=== PATIENT | female | born 1980 | race Caucasian/White ===

== ENCOUNTER 2016-05-10 17:38 | Inpatient (IN) | payer MEDICAID, OTHER ==
[~2016-05-10] VITALS: Ht 165.1 cm; Wt 80.5 kg
[2016-05-10 18:04] VITALS: BP 127/83; PULSE 88; RESP 20; Ht 165.1 cm; Wt 80.5 kg
[2016-05-10] MEDS ORDERED: PRENAT PO (18:07)
--- NOTE | 2016-05-10 19:29 | RADRPT ---
PROCEDURE: US OB. CLINICAL INDICATION: labor TECHNIQUE: Transabdominal OB views of the pelvis are available for review. COMPARISON: None FINDINGS: Within the uterus, there is a single, live intrauterine . The presentation is cephalic. Th e heart rate is 161 beats per minute. The amniotic fluid index in four quadrants is 10.6 cm. The placenta is noted to be anterior and grade 2. The biophysical profile score is 8/8. IMPRESSION: 1. Single live intrauterine with an amniotic fluid index of 10.6 cm. The biophysical pro file score is 8/8. 2. The placenta is anterior and grade 2. There are no findings of abruption or previa. RPTAT: QQ .Crow Velasco MD, Date Time Electronically viewed and signed by .Crow Velasco MD, on 05/10/2016 19:29 .M/
--- NOTE | 2016-05-10 19:31 | RADRPT ---
PROCEDURE: US OB. CLINICAL INDICATION: term gestation pain TECHNIQUE: Multiple sonographic images of the pelvis were obtained. The images were reviewed on a PACS workstation. COMPARISON: No prior studies are available for comparison. FINDINGS: There is a single viable intrauterine gestation. Cardiac activity is present with 168 beats per min [place]. There is a cephalic presentation. Measurements were made in order to determine age. The results are as follows: BPD =9.4 cm HC =33.3 cm AC =34. 1 cm FL =7.4 cm. Estimated gestational age of approximately 38 weeks 1 day The estimated date of delivery is 05/23/2016. The EFW = 3375 g plus/minus 506 g . The placenta is anterior. There is no evidence for an abruption or placenta previa. There are no adnexal masses.. IMPRESSION: Single viable intrauterine gestation of approximately 38 weeks 1 day. The estimated date of deliver y is 05/23/2016 . .Crow Velasco MD, MD Date Time Electronically viewed and signed by .Crow Velasco MD, on 05/10/2016 19:31 .M/
[2016-05-10] MEDS ORDERED: LACTATED RINGER'S 1,000 ML IV SCH (21:01)
--- NOTE | 2016-05-10 21:29 | HP ---
Date/Time of Note Date/Time of Note DATE: 05/10/16 TIME: 21:26 OB - History Hx of Present Free Text/Dictation 35-year-old with IUP at 39 weeks and 5 days with care at [facility] presents with a complaint of contractions. She was noted to be in labor. She had a cervical change from 1-3 cm in about 2 hours while being observed in triage. records are not available. GBS results obtained which is negative. She denies any compensation during her course. : 3 Para: 2 Care: Other ( records are not available) Obstetrical Complications: None Other Concerns: Denies any complications during her course Denies any remarkable past OB history Past Family/Social History * Past Medical, Surgical, Family and Obstetric Histories reviewed from chart. OB Admission Exam Vital Signs Vital Signs Vital Signs Date Time Temp Pulse Resp B/P Pulse Ox O2 Delivery O2 Flow Rate FiO2 05/10/16 18:04 97.5 88 20 127/83 98 Room Air Physical Exam HEENT: WNL Heart: Rhythm Normal Lungs: Clear Abdomen: WNL Extremities: Normal Reflexes: Normal Cervical Dilatation: 3cm Effacement: 75% Station: -2 Membranes: Intact Heart Rate: 120's Accelerations: Accelerations Present Decelerations: No Decelerations Varibility: Moderate Contractions on Admission: >10 Minutes Apart Intensity: Mild OB Assessment/Plan Other Assessment: Early active labor GBS negative Plan: Expectant Management Other plan: Declined epidural and labor augmentation Desired to have the least intervention Anticipate labs DAE SAUCEDO MD May 10, 2016 21:29
[2016-05-10] MEDS ORDERED: MISOPROSTOL 200 MCG TAB PR PRN (21:30)
[2016-05-10] MEDS ORDERED: OXYTOCIN 30 UNITS/LR 500 ML IV PRN (21:30)
[2016-05-10] MEDS ORDERED: IBUPROFEN 600 MG TAB PO PRN (21:30)
[2016-05-10] MEDS ORDERED: ACETAMINOPHEN/CODEINE #3 TAB PO PRN (21:30)
[2016-05-10] MEDS ORDERED: OXYTOCIN 30 UNITS/LR 500 ML IV SCH ×2 (21:30)
[2016-05-10] MEDS ORDERED: BUTORPHANOL 2 MG INJ IV PRN ×2 (21:30)
[2016-05-10] MEDS ORDERED: CARBOPROST 250 MCG INJ IM PRN (21:30)
[2016-05-10] MEDS ORDERED: LACTATED RINGER'S 1,000 ML IV PRN (21:30)
[2016-05-10] MEDS ORDERED: LIDOCAINE 1% (MPF) 30 ML INJ INJ PRN (21:30)
[2016-05-10] MEDS ORDERED: METHYLERGONOVINE 0.2 MG INJ IM PRN (21:30)
--- NOTE | 2016-05-10 21:56 | TRIAGE ---
OB Triage Datetime Report Generated by CPN: 05/10/2016 21:56 Datetime: 05/10/2016 21:40 Assessment Type: Admission Assessment Datetime: 05/10/2016 21:38 Stage of : Labor Datetime: 05/10/2016 21:36 Stage of : Labor Labor Evaluation Frequency: 5-7 Monitor Mode: External Duration (sec)2399: 70-100 Quality: Mild Pattern: Normal: <= 5 Contractions in 10 Minutes Resting Tone [place]: Relaxed Monitor Mode: External US Variability: Minimal - Undetectable to <=5 bpm Accelerations: 15X15 Decelerations: Early Category: Category II Datetime: 05/10/2016 21:00 Labor Evaluation Frequency: 5-7 Monitor Mode: External Duration (sec)2399: 90-110 Quality: Mild Pattern: Normal: <= 5 Contractions in 10 Minutes Resting Tone [place]: Relaxed Heart Rate FHR Baseline Rate: 130 Monitor Mode: External US Variability: Moderate 6-25 bpm Accelerations: 15X15 Decelerations: None Category: Category I Datetime: 05/10/2016 20:25 Vaginal Exam Dilatation (cms): 3.0 Effacement (%): 80 Station: -2 Exam By: BEVANGELISTA Datetime: 05/10/2016 20:00 Labor Evaluation Frequency: X1 Monitor Mode: External Duration (sec)2399: 50 Quality: Mild Pattern: Normal: <= 5 Contractions in 10 Minutes Resting Tone [place]: Relaxed Heart Rate FHR Baseline Rate: 130 Monitor Mode: External US Variability: Moderate 6-25 bpm Accelerations: 15X15 Decelerations: None Category: Category I Datetime: 05/10/2016 19:00 Labor Evaluation Frequency: irritability Monitor Mode: External Duration (sec)2399: 40-50 Quality: Mild Pattern: Normal: <= 5 Contractions in 10 Minutes Resting Tone [place]: Relaxed Heart Rate FHR Baseline Rate: 135 Monitor Mode: External US FHR Baseline Changes: No Baseline Change Variability: Moderate 6-25 bpm Accelerations: 15X15 Decelerations: None Category: Category I Datetime: 05/10/2016 18:10 Vaginal Exam Dilatation (cms): 1.0 Effacement (%): 80 Station: -3 Exam By: franca ley Vaginal Bleeding: None Cervix, Consistency: Soft Cervix, Position: Posterior Presentation 'A': Cephalic Datetime: 05/10/2016 17:59 Assessment Type: Admission Assessment EGA: 39.5 Movement: Present Rupture of Membranes: Denies Maternal Assessment Level of Consciousness: Fully Conscious DTR's/Clonus: DTRs 2+; No Clonus Headache: Denies Blurred Vision: No Respiratory Effort: Unlabored; Regular Rhythm; Equal Expansion Breath Sounds, Left: Clear and Equal Breath Sounds, Right: Clear and Equal Nausea/Vomiting: Denies RUQ Epigastric Pain: Denies Facial Edema: None Fall Risk Assessment History of Falling: (0) No Secondary Diagnosis: (0) No Ambulatory Aid: (0) Bedrest/Nurse Assist IV Therapy: (0) No Gait: (0) Normal/Bedrest/Immobile Mental Status: (0) Oriented to Own Ability Fall Score: 0 Fall Risk Score Definition: No Risk: No action required Datetime: 05/10/2016 17:58 Time of Arrival: 05/10/2016 17:45 Arrived By: Ambulatory Arrived From: Home Chief Complaint: contractions Movement: Present Contractions: Occasional Time Contractions Began: 05/10/2016 14:00 Rupture of Membranes: Denies Vaginal Bleeding: None Vaginal Discharge: Denies Recent Sexual Intercouse: Denies Abdominal Trauma: Not Applicable Patient Complaints: Contractions Initial Plan: nst, christie, bpp, sve
[2016-05-10 22:42] LABS: ADD SCAN DIFF NO
[2016-05-10 22:48] LABS: BASOPHILS % 0.2 % (0.0-2.0); EOSINOPHILS # 0.1 10^3/ul (0.0-0.5); EOSINOPHILS % 0.6 % (0.0-7.0); HEMOGLOBIN 14.7 g/dl (12.0-16.0); LYMPHOCYTES # 2.3 10^3/ul (0.8-2.9); LYMPHOCYTES % 25.6 % (15.0-51.0); MEAN CORPUSCULAR HEMOGLOBIN 32.7 pg (29.0-33.0); MEAN CORPUSCULAR VOLUME 93.3 fl (82.0-101.0); MEAN PLATELET VOLUME 9.6 fl (7.4-10.4); MONOCYTE # 0.6 10^3/ul (0.3-0.9); MONOCYTES % 6.2 % (0.0-11.0); NEUTROPHILS % 66.5 % (39.0-77.0); PLATELET COUNT 209 10^3/UL (140-415); RED CELL DISTRIBUTION WIDTH 13.4 % (11.5-14.5); WHITE BLOOD COUNT 8.9 10^3/ul (4.8-10.8)
[2016-05-10 23:04] LABS: INR 0.87; PROTIME 11.8 Sec (12.2-14.2); PT RATIO 0.9
[2016-05-10 23:05] LABS: PARTIAL THROMBOPLASTIN TIME 24.5 Sec (25.0-35.0)
[2016-05-11 00:40] LABS: ADD UMIC NO; URINE BILIRUBIN (Dip) NEGATIVE (NEGATIVE); URINE BLOOD (Dip) NEGATIVE (NEGATIVE); URINE COLOR LT. YELLOW (YELLOW); URINE GLUCOSE (Dip) NEGATIVE (NEGATIVE); URINE KETONES (Dip) NEGATIVE (NEGATIVE); URINE LEUKOCYTE ESTERASE (Dip) NEGATIVE (NEGATIVE); URINE NITRITE (Dip) NEGATIVE (NEGATIVE); URINE TOTAL PROTEIN (Dip) NEGATIVE (NEGATIVE); URINE UROBILINOGEN (Dip) 0.2 E.U./dL (0.1-1.0)
[2016-05-11] MEDS: LACTATED RINGER'S 1,000 ML IV* SCH ×3 (01:42→17:42)
--- NOTE | 2016-05-11 01:42 | LDN ---
Date/Time of Note Date/Time of Note DATE: 05/11/16 TIME: 01:41 Delivery Summary Placenta Delivered: Spontaneously Meconium: none Perineum intact?: No Perineal laceration: 2 Perineal laceration repair: second degree perineal and vaginal laceration,, repaired using 2-0 chromic Anesthesia type: None Estimated blood loss: 300 Sponge & Needle done & correct: Yes All needle counts correct: Yes Any foreign bodies felt in the: No Problems: Delivery Information Sex Infant Sex: male Apgars 1 Minute: 8 5 Minute: 9 Suctioning Nose & mouth suctioned at monet: Yes Delee suction performed: Yes Umbilical Cord Umbilical cord with: 3 Vessels Cord presentations: no nuchal cord Cord Blood was obtained: Yes DAE SAUCEDO MD May 11, 2016 01:42
[2016-05-11] MEDS ORDERED: ZOLPIDEM 5 MG TAB PO PRN (02:00)
[2016-05-11] MEDS: SENNA/DOCUSATE NA (8.6MG/50MG) TAB PO SCH ×3 (02:00→21:08)
[2016-05-11] MEDS ORDERED: OXYTOCIN 30 UNITS/LR 500 ML IV PRN (02:00)
[2016-05-11] MEDS ORDERED: ACETAMINOPHEN/CODEINE #3 TAB PO PRN (02:00)
[2016-05-11] MEDS ORDERED: morphine 2 MG INJ IV PRN (02:00)
[2016-05-11] MEDS ORDERED: DIPHENHYDRAMINE 25 MG CAP PO PRN (02:00)
[2016-05-11] MEDS ORDERED: METHYLERGONOVINE 0.2 MG TAB PO PRN (02:00)
[2016-05-11] MEDS ORDERED: CARBOPROST 250 MCG INJ IM PRN (02:00)
[2016-05-11] MEDS ORDERED: LANOLIN 7 GM TUBE TOP PRN (02:00)
[2016-05-11] MEDS ORDERED: ONDANSETRON 4 MG INJ IV PRN (02:00)
[2016-05-11] MEDS ORDERED: METHYLERGONOVINE 0.2 MG INJ IM PRN (02:00)
[2016-05-11] MEDS ORDERED: MISOPROSTOL 200 MCG TAB PR PRN (02:00)
[2016-05-11 02:08] LABS: BARBITURATES Negative (NEGATIVE); CANNABINOIDS Negative (NEGATIVE)
[2016-05-11 02:36] LABS: BENZODIAZEPINES Negative (NEGATIVE)
[2016-05-11 02:37] LABS: COCAINE Negative (NEGATIVE); OPIATES Negative (NEGATIVE)
[2016-05-11] MEDS: IBUPROFEN 600 MG TAB PO SCH ×4 (03:14→17:27)
[2016-05-11 03:20] VITALS: BP 128/75; PULSE 72; RESP 18
[2016-05-11 04:00] VITALS: BP 122/70; PULSE 78
[2016-05-11 07:49] VITALS: BP 130/67; PULSE 73; RESP 18
[2016-05-11 08:10] LABS: HEMATOCRIT 36.8 % (37.0-47.0); HEMOGLOBIN 13.1 g/dl (12.0-16.0)
[2016-05-11] MEDS: MULTIVIT/MIN/FOLATE/IRON/PREN TAB PO SCH (08:43)
[2016-05-11] MEDS: WITCH HAZEL/GLYCERIN PAD PR PRN (08:43)
[2016-05-11 14:52] VITALS: BP 122/66; PULSE 76; RESP 18
[2016-05-11 19:35] VITALS: BP 116/78; PULSE 79; RESP 18
[2016-05-12] VITALS: BP 121/79; PULSE 76; RESP 18
[2016-05-12] MEDS: IBUPROFEN 600 MG TAB PO SCH ×3 (00:12→15:43)
[2016-05-12] MEDS: LACTATED RINGER'S 1,000 ML IV* SCH (01:42)
[2016-05-12 04:35] VITALS: BP 118/75; PULSE 71; RESP 18
[2016-05-12 09:04] VITALS: BP 117/64; PULSE 75; RESP 20
[2016-05-12] MEDS: MULTIVIT/MIN/FOLATE/IRON/PREN TAB PO SCH (09:42)
[2016-05-12] MEDS: SENNA/DOCUSATE NA (8.6MG/50MG) TAB PO SCH ×2 (09:42→22:04)
--- NOTE | 2016-05-12 12:44 | PN ---
Date/Time of Note Date/Time of Note DATE: 05/12/16 TIME: 12:43 OB Subjective Subjective Subjective day 1 VS stable Abdomen soft uterus firm lochia normal extremity nor Current Medications Medications (Trade) Dose Ordered Sig/Laurie Route PRN Reason Start Time Stop Time Status Last Admin Dose Admin Lactated Ringer's (Lr) 1,000 ml @ 125 mls/hr Q8H IV 05/10/16 21:01 05/11/16 01:46 DC 05/10/16 23:04 Butorphanol Tartrate (Stadol) 1 mg Q2H PRN IV PAIN 05/10/16 21:30 05/11/16 01:46 DC Butorphanol Tartrate (Stadol) 2 mg Q2H PRN IV PAIN 05/10/16 21:30 05/11/16 01:46 DC Lidocaine 30 ml 30 ml ONCE PRN INJ EPISIOTOMY/TEARING 05/10/16 21:30 05/11/16 01:46 DC Oxytocin/Lactated Ringer's 500 ml @ 125 mls/hr ONCE -MAY REPEAT X1 IV 05/10/16 21:30 05/11/16 01:46 DC 05/11/16 01:10 Oxytocin/Lactated Ringer's 500 ml @ 125 mls/hr ONCE IV 05/10/16 21:30 05/11/16 01:46 DC Ibuprofen (Motrin) 600 mg ONCE PRN PO Mild Pain (Pain Score 1-3) 05/10/16 21:30 05/11/16 01:46 DC Acetaminophen/ Codeine Phosphate 2 tab 2 tab ONCE PRN PO Moderate to Severe Pain (4-10) 05/10/16 21:30 05/11/16 01:46 DC Lactated Ringer's 1,000 ml @ 2,000 mls/hr Q30M PRN IV PRE-EPIDURAL BOLUS 05/10/16 21:30 05/11/16 01:46 DC Oxytocin/Lactated Ringer's 500 ml @ 0 mls/hr ONCE PRN IV For Hemorrhage Management 05/10/16 21:30 05/11/16 01:46 DC Methylergonovine Maleate (Methergine) 0.2 mg ONCE PRN IM VAGINAL BLEEDING 05/10/16 21:30 05/11/16 01:46 DC Carboprost Tromethamine (Hemabate) 250 mcg ONCE PRN IM VAGINAL BLEEDING 05/10/16 21:30 05/11/16 01:46 DC Misoprostol 1000 mcg 1,000 mcg ONCE PRN MO VAGINAL BLEEDING 05/10/16 21:30 05/11/16 01:46 DC Lactated Ringer's (Lr) 1,000 ml @ 125 mls/hr Q8H IV* 05/11/16 01:42 05/11/16 05:32 Methylergonovine Maleate (Methergine) 0.2 mg Q6H PRN PO VAGINAL BLEEDING 05/11/16 02:00 Morphine Sulfate (morphine) 1 mg Q3 PRN IV PAIN LEVEL 6-10 05/11/16 02:00 Ibuprofen (Motrin) 600 mg Q6 PO 05/11/16 02:00 05/12/16 05:54 Acetaminophen/ Codeine Phosphate (Tylenol No.3) 1 tab Q4H PRN PO PAIN LEVEL 1-5 05/11/16 02:00 Ondansetron HCl (Zofran Inj) 4 mg Q6H PRN IV NAUSEA AND/OR VOMITING 05/11/16 02:00 Diphenhydramine HCl (Benadryl) 25 mg Q6H PRN PO PRURITUS 05/11/16 02:00 Zolpidem Tartrate (Ambien) 5 mg QHS PRN PO INSOMNIA 05/11/16 02:00 Senna/Docusate Sodium (Senokot-S) 1 tab BID PO 05/11/16 02:00 05/12/16 09:42 Witch Temi/ Glycerin (Tucks Pads) 1 pad BEDSIDE MEDICATION PRN MO HEMORRHOID/EPISIOTMY PAIN 05/11/16 02:00 05/11/16 08:43 Lanolin (Eub-I-Opswxo) 1 applic BEDSIDE MEDICATION PRN TOP BEDSIDE FOR ALONDRA TO NIPPLES 05/11/16 02:00 05/11/16 08:44 Measles/Mumps/ Rubella Vaccine Live (Mmr Ii Vaccine) 0.5 ml ONCE ONCE SC* 05/13/16 09:00 05/13/16 09:01 Diphtheria/ Tetanus/Acell Pertussis (Adacel) 0.5 ml ONCE ONCE IM* 05/13/16 09:00 05/13/16 09:01 Varicella Virus Vaccine Live 1350 unit 1,350 unit ONCE ONCE SC* 05/13/16 09:00 05/13/16 09:01 Oxytocin/Lactated Ringer's 500 ml @ 0 mls/hr ONCE PRN IV For Hemorrhage Management 05/11/16 02:00 Methylergonovine Maleate (Methergine) 0.2 mg ONCE PRN IM VAGINAL BLEEDING 05/11/16 02:00 Carboprost Tromethamine (Hemabate) 250 mcg ONCE PRN IM VAGINAL BLEEDING 05/11/16 02:00 Misoprostol (Cytotec) 1,000 mcg ONCE PRN MO VAGINAL BLEEDING 05/11/16 02:00 Prenat Multivit/ Clinch/Iron/Folic Ac ( S) 1 tab DAILY PO 05/11/16 09:00 05/12/16 09:42 Influenza Virus Vaccine (Fluzone) 0.5 ml ONCE ONCE IM* 05/14/16 09:00 05/14/16 09:01 ARSENIO HOFFMAN MD May 12, 2016 12:44
[2016-05-12 16:05] VITALS: BP 119/76; PULSE 80; RESP 16
[2016-05-12 20:00] VITALS: BP 124/86; PULSE 83; RESP 18
[2016-05-13] MEDS: IBUPROFEN 600 MG TAB PO SCH ×4 (00:34→11:25)
[2016-05-13 04:00] VITALS: BP 115/68; PULSE 75; RESP 20
[2016-05-13 07:30] VITALS: BP 121/81; PULSE 72; RESP 16
[2016-05-13] MEDS ORDERED: DIPHTH/TET/ACEL PERTUSS (ADULT) 0.5 ML VIAL IM* ONE (09:00)
[2016-05-13] MEDS ORDERED: MEASLES,MUMPS,RUBELLA VACCINE INJ SC* ONE (09:00)
[2016-05-13] MEDS ORDERED: VARICELLA VACCINE LIVE/PF 1,350 UNIT/0.5 ML ML SC* ONE (09:00)
[2016-05-13] MEDS: SENNA/DOCUSATE NA (8.6MG/50MG) TAB PO SCH (09:34)
[2016-05-13] MEDS: MULTIVIT/MIN/FOLATE/IRON/PREN TAB PO SCH (09:34)
[2016-05-13] MEDS: WITCH HAZEL/GLYCERIN PAD PR PRN (11:27)
--- NOTE | 2016-05-13 14:31 | PD.PPDC ---
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
--- NOTE | 2016-05-13 14:34 | DS ---
Date/Time of Note Date/Time of Note DATE: 05/13/16 TIME: 14:32 Obstetrical Discharge Record Final Diagnosis Final Diagnosis: Term delivered Vaginal Delivery Obstetrical Delivery: Spontaneous Condition on Discharge Physical Assessment Last Vitals: Post normal vaginal delivery day 2 Vital sign stable Abdomen soft uterus firm lochia normal extremity normal patient discharged home with a follow-up instructions advised to make appointment in 2 weeks to be seen at the clinic Voiding: Yes Bowel Movement: Yes Breast: Soft, non-tender, Filling Calf Tenderness: No Patient Condition: Good ARSENIO HOFFMAN MD May 13, 2016 14:34
[2016-05-14] MEDS ORDERED: INFLUENZA VIRUS VACCINE 0.5 ML (DISPENSING) IM* ONE (09:00)
[2016-05-14 13:27] LABS: RUBELLA ANTIBODY - IGG 1.37
== END 2016-05-13 16:40 | disposition home or self-care (01) | DRG 775 ==
LOC: L-D 17:38 → OBT 17:38 → L-D 20:55 → OBT 20:55 → PP1 05-11 03:27
PROVIDERS: ADMIT Obstetrics & Gynecology; ATTEND Obstetrics & Gynecology
PROC: 10E0XZZ Delivery of Products of Conception, External Approach (ICD-10-PCS; principal; 2016-05-11)
PROC: 0KQM0ZZ Repair Perineum Muscle, Open Approach (ICD-10-PCS; 2016-05-11)
PROC: 0UQGXZZ Repair Vagina, External Approach (ICD-10-PCS; 2016-05-11)
DX: O70.1 Second degree perineal laceration during delivery (principal); Z37.0 Single live birth; Z3A.39 39 weeks gestation of pregnancy
CPT/HCPCS: 76815; 76818; 80307; 81003; 85014; 85018; 85025; 85610; 85730; 86592; 86703; 86762; 86850; 86900; 86901; 87340; 90715; 90716; G0463; J2590; J7120